=== PATIENT | female | born 1950 | race Caucasian/White ===

== ENCOUNTER 2018-05-01 13:20 | Emergency (ER) | payer OTHER ==
[~2018-05-01] VITALS: Ht 149.9 cm; Wt 54.4 kg
[2018-05-01] MEDS ORDERED: ZOCOR5 MG (13:38)
[2018-05-01] MEDS ORDERED: ATENOLOL25 GM (13:38)
[2018-05-01] MEDS ORDERED: LOTREL 5-10 MG1 CAP (13:38)
[2018-05-01] MEDS ORDERED: METFORMIN HCL500 MG (13:38)
== END 2018-05-01 18:36 | disposition home or self-care (01) ==
LOC: ER 13:20
DX: N39.0 Urinary tract infection, site not specified (principal)